=== PATIENT | male | born 1955 | race Caucasian/White ===

== ENCOUNTER → 2019-03-03 | Outpatient (CLI) | payer OTHER ==
[~2019-03-03] MED LIST: IOVERSOL 350 MG/ML 150 ML VIAL ONE; SODIUM CHLORIDE 0.9% 100 ML ONE
== END | disposition home or self-care (01) ==
LOC: RADMN 08:11
PROVIDERS: ATTEND Internal Medicine Cardiovascular Disease
DX: I71.4 Abdominal aortic aneurysm, without rupture (principal); I65.29 Occlusion and stenosis of unspecified carotid artery; I70.229 Atherosclerosis of native arteries of extremities with rest pain, unspecified extremity; I71.02 Dissection of abdominal aorta
CPT/HCPCS: 75635; J7050; Q9967

== ENCOUNTER → 2019-03-10 | Outpatient (CLI) | payer OTHER ==
[~2019-03-10] MED LIST changes: +IOVERSOL 350 MG/ML 100 ML VIAL ONE; -IOVERSOL 350 MG/ML 150 ML VIAL ONE
== END | disposition home or self-care (01) ==
LOC: RADMN 08:11 → EDUNIT# 09:00
PROVIDERS: ATTEND Internal Medicine Cardiovascular Disease
DX: G95.19 Other vascular myelopathies (principal); I65.29 Occlusion and stenosis of unspecified carotid artery; I70.229 Atherosclerosis of native arteries of extremities with rest pain, unspecified extremity; I71.02 Dissection of abdominal aorta
CPT/HCPCS: 70498; J7050; Q9967